=== PATIENT | female | born 1975 | race Caucasian/White ===

== ENCOUNTER 2020-04-09 06:50 | Day surgery (SDC) | payer OTHER ==
[~2020-04-09 06:50] MED LIST: LEXAPRO20 MG PO
== END 2020-04-09 13:30 | disposition home or self-care (01) ==
LOC: CIR.AMB 06:50
PROVIDERS: ATTEND Orthopaedic Surgery
DX: M77.11 Lateral epicondylitis, right elbow (principal); Z20.828 Contact with and (suspected) exposure to other viral communicable diseases